=== PATIENT | female | born 1980 | race Caucasian/White ===

== ENCOUNTER → 2017-11-11 | Outpatient (CLI) | payer OTHER ==
[~2017-11-11] MED LIST: ALBU4 PO; ALBU90I INH; AMOX500 PO; AMPDEX10 PO; AZIT250 PO; CLON.5 PO; CODACE30 PO; CODGUAEL PO; DULO30 PO; FLUSAL1005 IH; HYDACE10B PO; HYDACE5 PO; IBUP800 PO; LAMO50 PO; PRED10 PO; PROACE100 PO; RXTRAM50 PO; SULTRIDS PO; TRAM50 PO; [UNRECOGNIZED DRUG - CODE] PO
[2017-11-12 14:27] LABS: Candida species (DNA Probe) Negative (NEGATIVE); G. vaginalis (DNA Probe) Positive (NEGATIVE); T. vaginalis (DNA Probe) Negative (NEGATIVE)
== END ==
LOC: LAB SHORT 17:00 → LAB 17:00
PROVIDERS: Physician Assistant
DX: Z01.419 Encounter for gynecological examination (general) (routine) without abnormal findings (principal); Z11.3 Encounter for screening for infections with a predominantly sexual mode of transmission
CPT/HCPCS: 87480; 87510; 87529; 87660

== ENCOUNTER → 2018-10-10 | Outpatient (CLI) | payer OTHER ==
[~2018-10-10] MED LIST changes: +AMPDEX5 PO; +CYCL10 PO; +Hydrochlorothia25 MG PO; +LAMO25 PO; -LAMO50 PO; +OMEPRAZOLE MAGN20 MG PO; +POTCHL10ER PO; +SUCR1 PO
[2018-10-10 17:47] LABS: BASOPHILS ABSOLUTE AUTO 0.02 K/mm3 (0.00-0.23); BASOPHILS PERCENT AUTO 0 % (0-2); EOSINOPHILS ABSOLUTE AUTO 0.08 K/mm3 (0.00-0.68); EOSINOPHILS PERCENT AUTO 1 % (0-6); Hematocrit 36.1 % (33.0-51.0); Hemoglobin 12.4 g/dL (11.5-16.0); IMMATURE GRAN ABSOLUTE AUTO 0.01 K/mm3 (0.00-0.10); IMMATURE GRAN PERCENT AUTO 0 % (0-1); LYMPHOCYTES ABSOLUTE AUTO 2.02 K/mm3 (0.84-5.20); LYMPHOCYTES PERCENT AUTO 30 % (21-46); MONOCYTES ABSOLUTE AUTO 0.65 K/mm3 (0.16-1.47); MONOCYTES PERCENT AUTO 10 % (4-13); Mean Corpuscular HGB 30.5 pg (26.0-34.0); Mean Corpuscular HGB Conc 34.3 g/dL (31.5-36.5); Mean Corpuscular Volume 89 fL (80-100); Mean Platelet Volume 10.5 fL (9.1-12.4); NEUTROPHILS ABSOLUTE AUTO 3.97 K/mm3 (1.96-9.15); NEUTROPHILS PERCENT AUTO 59 % (41-73); Platelet Count 317 K/mm3 (150-400); RDW Coefficient Variation 13.9 % (11.7-14.2); RDW Standard Deviation 44.6 fL (35.1-46.3); Red Blood Cell Count 4.07 M/mm3 (3.80-5.20); White Blood Cell Count 6.75 K/mm3 (4.00-11.30)
[2018-10-10 18:07] LABS: Alanine Aminotransfer (ALT/SGP 52 U/L (12-78); Albumin, Blood 3.5 g/dL (3.4-5.0); Alk Phos 94 U/L (40-126); Anion Gap 8 mmol/L (6-16); Aspartate Aminotrans (AST/SGOT 30 U/L (12-37); Bilirubin, Total 0.4 mg/dL (0.1-1.0); Blood Urea Nitrogen 11 mg/dL (8-24); Bun/Creatinine Ratio 15.1 (12.0-20.0); CO2, Blood 34 mmol/L (21-32); Calcium, Blood 8.9 mg/dL (8.5-10.1); Chloride, Blood 96 mmol/L (98-108); Creatinine, Blood 0.73 mg/dL (0.40-1.00); Globulin, Blood 3.6 g/dL (2.2-4.0); Glomerular Filtration Rate >60 (60-); Glucose, Blood 98 mg/dL (70-99); Potassium, Blood 2.8 mmol/L (3.5-5.5); Sodium, Blood 138 mmol/L (136-145); Thyroid Stimulating Hormone 0.414 uIU/mL (0.360-4.800); Total Protein, Blood 7.1 g/dL (6.4-8.2)
== END ==
LOC: LAB EV 17:41 → LAB SHORT 17:41
PROVIDERS: Physician Assistant
DX: M79.89 Other specified soft tissue disorders (principal); R53.83 Other fatigue
CPT/HCPCS: 80053; 83880; 84443; 85025

== ENCOUNTER 2018-11-06 07:40 | Day surgery (SDC) | payer OTHER ==
[~2018-11-06 07:40] MED LIST changes: +GABA800 PO; +HYDCHL25 PO; +Prilosec Otc20 MG PO
--- NOTE | 2018-11-06 08:11 | NUR ---
Ambulatory in Day Surgery History, Chart, Medications and Allergies reviewed before start of procedure. Lungs clear T/O to Auscultation. Patient confirms NPO status and agrees with scheduled surgery. Patient States Post-Procedure ride home has been arranged.
--- NOTE | 2018-11-06 08:54 | NUR ---
11/06/18 0854 Nasreen Farrell History, Chart, Medications and Allergies reviewed before start of procedure.PATIENT DETERMINED TO BE ASA APPROPRIATE FOR PROPOFOL SEDATION PRIOR TO START OF PROCEDURE BY .MONITOR INTACT WITH CONTINUOUS PULSE OXIMETRY AND INTERMITTENT BP.3-LEAD EKG REVIEWED WITH PHYSICIAN PRIOR TO START OF PROCEDURE.O2 VIA N/C INTACT THROUGHOUT SEDATION/PROCEDURE.
--- NOTE | 2018-11-06 09:43 | NUR ---
Patient up to Ambulate independently. Gait steady. Discharge instructions reviewed with patient. Patient verbalizes understanding. Copy given to patient to take home. Patient States Post-Procedure ride home has been arranged. Discharged via wheelchair to private car for ride home.
== END 2018-11-06 22:53 | disposition home or self-care (01) ==
LOC: ORSCMMR 07:40 → ORD 08:30 → ORSCMMR 08:30
PROVIDERS: Internal Medicine Gastroenterology
PROC: 0DB68ZX Excision of Stomach, Via Natural or Artificial Opening Endoscopic, Diagnostic (ICD-10-PCS; principal; 2018-11-06 08:30)
DX: Z87.11 Personal history of peptic ulcer disease (principal); K31.9 Disease of stomach and duodenum, unspecified; F32.9 Major depressive disorder, single episode, unspecified; I10 Essential (primary) hypertension; Z87.891 Personal history of nicotine dependence; Z79.899 Other long term (current) drug therapy
CPT/HCPCS: 88305; 88342; J2250; J2704; J7120

== ENCOUNTER 2019-01-08 01:41 | Emergency (ER) | payer OTHER ==
[~2019-01-08] VITALS: Ht 177.8 cm; Wt 90.7 kg
[2019-01-08] MEDS ORDERED: LASIX (02:06)
[2019-01-08] MEDS ORDERED: SUCRALFATE (02:06)
[2019-01-08] MEDS ORDERED: RANITIDINE (02:06)
[2019-01-08] MEDS ORDERED: KLONOPIN (02:06)
[2019-01-08 02:31] LABS: BASOPHILS ABSOLUTE AUTO 0.02 K/mm3 (0.00-0.23); BASOPHILS PERCENT AUTO 0 % (0-2); EOSINOPHILS ABSOLUTE AUTO 0.43 K/mm3 (0.00-0.68); EOSINOPHILS PERCENT AUTO 8 % (0-6); Hematocrit 32.8 % (33.0-51.0); Hemoglobin 10.8 g/dL (11.5-16.0); IMMATURE GRAN ABSOLUTE AUTO 0.01 K/mm3 (0.00-0.10); IMMATURE GRAN PERCENT AUTO 0 % (0-1); LYMPHOCYTES PERCENT AUTO 35 % (21-46); MONOCYTES ABSOLUTE AUTO 0.58 K/mm3 (0.16-1.47); MONOCYTES PERCENT AUTO 11 % (4-13); Mean Corpuscular HGB 30.6 pg (26.0-34.0); Mean Corpuscular HGB Conc 32.9 g/dL (31.5-36.5); Mean Corpuscular Volume 93 fL (80-100); NEUTROPHILS ABSOLUTE AUTO 2.56 K/mm3 (1.96-9.15); NEUTROPHILS PERCENT AUTO 47 % (41-73); RDW Coefficient Variation 14.8 % (11.7-14.2); RDW Standard Deviation 50.7 fL (35.1-46.3); Red Blood Cell Count 3.53 M/mm3 (3.80-5.20)
[2019-01-08 02:37] LABS: Mean Platelet Volume 9.9 fL (9.1-12.4); Platelet Count 308 K/mm3 (150-400)
[2019-01-08 02:40] LABS: Alanine Aminotransfer (ALT/SGP 36 U/L (12-78); Albumin, Blood 3.3 g/dL (3.4-5.0); Albumin/Globulin Ratio 0.9 (0.8-1.8); Alk Phos 101 U/L (50-136); Anion Gap 3 mmol/L (6-16); Aspartate Aminotrans (AST/SGOT 21 U/L (12-37); Bilirubin, Total 0.1 mg/dL (0.1-1.0); Blood Urea Nitrogen 12 mg/dL (8-24); Bun/Creatinine Ratio 16.5 (12.0-20.0); CO2, Blood 36 mmol/L (21-32); Calcium, Blood 8.7 mg/dL (8.5-10.1); Chloride, Blood 98 mmol/L (98-108); Creatinine, Blood 0.73 mg/dL (0.40-1.00); Globulin, Blood 3.6 g/dL (2.2-4.0); Glomerular Filtration Rate >60 (60-); Glucose, Blood 76 mg/dL (70-99); Potassium, Blood 3.4 mmol/L (3.5-5.5); Sodium, Blood 137 mmol/L (136-145); Total Protein, Blood 6.9 g/dL (6.4-8.2)
[2019-01-08 03:09] LABS: Source, Urine Clean Catch
[2019-01-08 03:12] LABS: Bilirubin, Urine Neg (Neg); Blood, Urine 2+ (Neg); Glucose Qualitative, Urine Neg (Neg); Ketones, Urine Neg (Neg); Leukocyte Esterase, Urine 1+ (Neg); Nitrite, Urine Neg (Neg); Protein, Urine 1+ (Neg); Urobilinogen, Urine NORM (Normal)
[2019-01-08 03:22] LABS: Appearance, Urine Hazy (Clear); Color, Urine Yellow (P-Yellow)
[2019-01-08 03:23] LABS: Bacteria Few /hpf; Red Blood Cells, Urine Rare /hpf (0-2); Squamous Epithelial Cells Mod /hpf (Few)
== END 2019-01-08 04:54 | disposition home or self-care (01) ==
LOC: ER 01:41
PROVIDERS: Emergency Medicine
DX: R60.0 Localized edema (principal)
CPT/HCPCS: 36415; 71046; 80053; 81001; 83880; 85025; 87086; 96374; 99284-25; J1940

== ENCOUNTER → 2019-02-16 | Outpatient (CLI) | payer OTHER ==
[~2019-02-16] MED LIST changes: +KLONOPIN; +LASIX; +RANITIDINE; +SUCRALFATE
[2019-02-17 10:33] LABS: Candida species (DNA Probe) Negative (NEGATIVE); G. vaginalis (DNA Probe) Positive (NEGATIVE); T. vaginalis (DNA Probe) Negative (NEGATIVE)
== END | disposition home or self-care (01) ==
LOC: LAB 16:21 → LAB SHORT 16:21
PROVIDERS: Nurse Practitioner Family
DX: N76.0 Acute vaginitis (principal)
CPT/HCPCS: 87480; 87510; 87660

== ENCOUNTER → 2019-03-06 | Outpatient (CLI) | payer OTHER | END | disposition home or self-care (01) | LOC: LAB SHORT 17:52 → LAB 17:52 | DX: R10.2 Pelvic and perineal pain (principal) | CPT/HCPCS: 87077; 87086; 87186 ==

== ENCOUNTER → 2019-04-01 | Outpatient (CLI) | payer OTHER ==
[2019-04-01 12:36] LABS: Bilirubin, Urine Neg (Neg); Blood, Urine 1+ (Neg); Glucose Qualitative, Urine Neg (Neg); Ketones, Urine Neg (Neg); Leukocyte Esterase, Urine 3+ (Neg); Nitrite, Urine Neg (Neg); Protein, Urine Neg (Neg); Urobilinogen, Urine NORM (Normal)
[2019-04-01 13:05] LABS: Appearance, Urine Hazy (Clear); Bacteria Rare /hpf; Color, Urine Yellow (P-Yellow); Squamous Epithelial Cells Few /hpf (Few); White Blood Cells, Urine 25-50 /hpf (0-5)
[2019-04-01 13:22] LABS: Creatinine, Urine Random 42.9 mg/dL (27.00-270.00); Protein, Urine Random 9.8 mg/dL (0.0-11.9)
== END | disposition home or self-care (01) ==
LOC: LAB SHORT 12:06 → LAB 12:06
PROVIDERS: Internal Medicine
DX: R80.9 Proteinuria, unspecified (principal)
CPT/HCPCS: 81001; 82570; 84156

== ENCOUNTER → 2019-04-25 | Outpatient (CLI) | payer OTHER | END | disposition home or self-care (01) | LOC: LAB SHORT 12:18 → LAB 12:18 | DX: R30.0 Dysuria (principal) | CPT/HCPCS: 87077; 87086; 87147; 87186 ==

== ENCOUNTER 2019-05-20 04:04 | Emergency (ER) | payer OTHER ==
[~2019-05-20] VITALS: Ht 177.8 cm; Wt 86.2 kg
[2019-05-20] MEDS ORDERED: Augmentin 500-1 EACH PO (04:38)
== END 2019-05-20 05:00 | disposition home or self-care (01) ==
LOC: ER 04:04
DX: N81.4 Uterovaginal prolapse, unspecified (principal); L03.211 Cellulitis of face; Z88.8 Allergy status to other drugs, medicaments and biological substances; Z88.4 Allergy status to anesthetic agent; Z88.5 Allergy status to narcotic agent; Z79.899 Other long term (current) drug therapy; J45.909 Unspecified asthma, uncomplicated; Z87.891 Personal history of nicotine dependence
CPT/HCPCS: 99284

== ENCOUNTER 2019-06-13 20:55 | Emergency (ER) | payer OTHER ==
[~2019-06-13] VITALS: Ht 177.8 cm; Wt 95.2 kg
[~2019-06-13 20:55] MED LIST changes: +Augmentin 500-1 EACH PO; +FURO40 PO; +LAMO100 PO; -LAMO25 PO; -LASIX; -POTCHL10ER PO; +POTCHL20ER PO; -RANITIDINE; +Zantac150 MG PO
[2019-06-14] MEDS ORDERED: SPIR50 PO (00:23)
[2019-06-14] MEDS ORDERED: Augmentin 875-1 EACH PO (00:57)
[2019-06-14] MEDS ORDERED: Bactrim 400-801 EACH PO (00:57)
[2019-06-14] MEDS ORDERED: FLUC150A PO (01:50)
[2019-06-15] MEDS ORDERED: Klonopin0.5 MG PO (11:49)
[2019-06-15] MEDS ORDERED: Amphetamine Sal20 MG PO ×3 (11:51→12:06)
[2019-06-15] MEDS ORDERED: ACYC800 PO (12:13)
== END 2019-06-14 01:41 | disposition home or self-care (01) ==
LOC: ER 20:55
DX: L03.213 Periorbital cellulitis (principal); J45.909 Unspecified asthma, uncomplicated; F17.200 Nicotine dependence, unspecified, uncomplicated; Z88.5 Allergy status to narcotic agent; Z88.8 Allergy status to other drugs, medicaments and biological substances; Z79.899 Other long term (current) drug therapy
CPT/HCPCS: 99283; A9270-GY; Q0163

== ENCOUNTER 2019-06-15 08:35 | Inpatient (IN) | payer OTHER ==
[~2019-06-15] VITALS: Ht 177.8 cm; Wt 92.7 kg
[~2019-06-15 08:35] MED LIST changes: +Augmentin 875-1 EACH PO; +Bactrim 400-801 EACH PO; +FLUC150A PO; +SPIR50 PO
[2019-06-15 10:09] LABS: BASOPHILS ABSOLUTE AUTO 0.01 K/mm3 (0.00-0.23); BASOPHILS PERCENT AUTO 0 % (0-2); EOSINOPHILS PERCENT AUTO 1 % (0-6); Hematocrit 32.5 % (33.0-51.0); Hemoglobin 10.5 g/dL (11.5-16.0); IMMATURE GRAN ABSOLUTE AUTO 0.03 K/mm3 (0.00-0.10); IMMATURE GRAN PERCENT AUTO 0 % (0-1); LYMPHOCYTES ABSOLUTE AUTO 1.61 K/mm3 (0.84-5.20); LYMPHOCYTES PERCENT AUTO 16 % (21-46); MONOCYTES ABSOLUTE AUTO 0.85 K/mm3 (0.16-1.47); MONOCYTES PERCENT AUTO 8 % (4-13); Mean Corpuscular HGB 27.4 pg (26.0-34.0); Mean Corpuscular HGB Conc 32.3 g/dL (31.5-36.5); Mean Corpuscular Volume 85 fL (80-100); Mean Platelet Volume 9.9 fL (9.1-12.4); NEUTROPHILS ABSOLUTE AUTO 7.74 K/mm3 (1.96-9.15); NEUTROPHILS PERCENT AUTO 75 % (41-73); Platelet Count 253 K/mm3 (150-400); RDW Coefficient Variation 15.7 % (11.7-14.2); RDW Standard Deviation 48.6 fL (35.1-46.3); Red Blood Cell Count 3.83 M/mm3 (3.80-5.20); White Blood Cell Count 10.34 K/mm3 (4.00-11.30)
[2019-06-15 10:23] LABS: Anion Gap 6 mmol/L (6-16); Blood Urea Nitrogen 8 mg/dL (8-24); Bun/Creatinine Ratio 12.6 (12.0-20.0); CO2, Blood 28 mmol/L (21-32); Calcium, Blood 8.5 mg/dL (8.5-10.1); Chloride, Blood 105 mmol/L (98-108); Creatinine, Blood 0.63 mg/dL (0.40-1.00); Glomerular Filtration Rate >60 (60-); Glucose, Blood 100 mg/dL (70-99); Potassium, Blood 3.4 mmol/L (3.5-5.5); Sodium, Blood 139 mmol/L (136-145)
[2019-06-15] MEDS ORDERED: Klonopin0.5 MG PO (11:49)
[2019-06-15] MEDS ORDERED: Amphetamine Sal20 MG PO ×3 (11:51→12:06)
[2019-06-15] MEDS ORDERED: ACYC800 PO (12:13)
[2019-06-15 13:08] LABS: U Amphetamine Screen DETECTED; U Barbituate Screen Not Detected; U Benzodiazapine Screen DETECTED; U Buprenorphine Screen Not Detected; U Cannabinoids Screen Not Detected; U Cocaine Screen Not Detected; U Methadone Screen DETECTED; U Methamphetamine Screen DETECTED; U Opiates Screen DETECTED; U Oxycodone Screen Not Detected; U Phencyclidine Screen Not Detected; U Propoxyphene Screen Not Detected
--- NOTE | 2019-06-15 14:00 | NUR ---
ADMIT NOTE- PT ALERT AND ORIENTED ADMITTED THROUGH THE ED FOR LEFT FACIAL CELLULITIS. SWABBS COMPLETED IN THE ED TO R/O MRSA. PT HIGH RISK FOR MRSA BUT HAS NO Hx OF IT. PER RN FIELD CASE MANAGER LAUREL SEEK PT TO GO INTO [facility] UNTIL FIRST SET OF SWABS COMES BACK NEGATIVE. PT AWARE OF THIS. PT STATES SHE HAS A Hx OF HEROIN IV DRUG USE BUT STATES SHE HAS NOT USED SINCE 02/13/19. PT STATES SHE GOES TO THE [facility] AND TAKES 70MG OF METHADONE DAILY. PT IS CONCERNED ABOUT HER TAKE HOME DOSE OF METHADONE FOR THAT SHE SHOULD BE PICKING UP. WILL CALL [facility] TO VERIFY DOSE.
--- NOTE | 2019-06-15 17:46 | NUR ---
SHIFT SUMMARY- PT RECIEVED IV ABX ON ADMIT. PT HAS PAIN IN HER LEFT FACE FROM CELLULITIS, LEFT EYE SWOLLEN COMPLETELY SHUT ON ADMIT. PROVIDED AN ICE PACK FOR THE PT TO USE TO HELP WITH THE PAIN, WELL IBUPROFEN. PT TOOK A LONG (LONGER THAN 1 HOUR) SHOWER AFTER ADMIT WAS COMPLETE. PT ALERT, ORIENTED, INDEPENDENT IN THE ROOM. CABLE SWAGER ANITA ATTEMPTED TO CONTACT THE [facility] AT 1515 AND THEY WERE ALREADY CLOSED, UNABLE TO VERIFY PT DOSE OF 70MG DAILY OF METHADONE (PER PT). WILL PASS ON TO [facility] MONTERO TO HAVE DAY RN TOMORROW MORNING CALL CHAR AFTER SHIFT CHANGE. PT STATED SHE HAD HER DOSE FOR TODAY PRIOR TO ADMIT. CONTACT INFO FOR THE [facility] IS [phone]
--- NOTE | 2019-06-15 19:35 | NUR ---
JCARLOS IS IN THE ROOM WITH HER MOTHER, SLEEPY BUT IS AROUSABLE. STATES PAIN IS BETTER. SWELLING TO THE LEFT EYE, STILL UNABLE TO OPEN IT. OUTLINED REDNESS. GAVE WARM COMPRESS, DENIES ANY NEEDS AT THIS TIME. CALL LIGHT GIVEN. WILL CONTINUE TO MONITOR.
--- NOTE | 2019-06-15 21:04 | NUR ---
MEDICATIONS ADMINISTERED, PATIENT RESTING IN BED, DAUGHTER AT BED SIDE. NO NEEDS INDICATED.
--- NOTE | 2019-06-16 00:20 | NUR ---
JCARLOS IS RESTING COMFORTABLY, NO SIGNS OF DISTRESS. WILL CONTINUE TO MONITOR.
--- NOTE | 2019-06-16 06:05 | NUR ---
SHIFT SUMMARY: JCARLOS HAD A GOOD NIGHT. WARM TO COLD COMPRESS HAVE BEEN APPLIED THROUGHOUT THE NIGHT, STATES THE COLD FEELS BETTER THEN THE WARMTH. REDNESS HAS STAYED WITH IN THE LINES THAT WERE PLACED TONIGHT, SWELLING HAS DECREASED SLIGHTLY. SHE STILL UNABLE TO OPEN HER EYE UP. PAIN HAS REMAINED CONTROLLED SHE GOT TYLENOL AT SHIFT CHANGE AND HAS SLEPT OFF AND ON THIS SHIFT. VS HAVE REMAINED STABLE. WILL REPORT TO DAY SHIFT.
[2019-06-16 06:06] LABS: Hematocrit 32.2 % (33.0-51.0); Hemoglobin 10.3 g/dL (11.5-16.0); Mean Corpuscular HGB 27.9 pg (26.0-34.0); Mean Corpuscular Volume 87 fL (80-100); Mean Platelet Volume 10.8 fL (9.1-12.4); Platelet Count 276 K/mm3 (150-400); RDW Coefficient Variation 16.1 % (11.7-14.2); RDW Standard Deviation 51.8 fL (35.1-46.3); Red Blood Cell Count 3.69 M/mm3 (3.80-5.20); White Blood Cell Count 8.57 K/mm3 (4.00-11.30)
--- NOTE | 2019-06-16 11:15 | NUR ---
Patient is sitting up in bed and alert. Patient immediately shares about her ER experience, her struggles in her personal life and her christina journey. I listen empathically, hear confession, reinforce helpful attitudes and practices, and provide grief support, pasoral addictions counselor assistant and prayer. Patient responds well and shows signs of renewed christina. I will continue to remain available to patient and family.
[2019-06-16] MEDS ORDERED: METH10 PO (11:40)
[2019-06-16 11:54] LABS: Vancomycin, Trough 19.7 ug/mL (5.0-10.0)
--- NOTE | 2019-06-16 18:04 | NUR ---
SHIFT SUMMARY: NO ACUTE CHANGES TO REPORT THIS SHIFT. PT A&O; CALM AND COOPERATIVE WITH CRARE. CELLULITIS TO L FACE; MEDICATED FOR PAIN PER EMAR; SLIGHT DECREASE IN SWELLING; PATIENT REMAINS UNABLE TO OPEN L EYE. PATIENT'S HOME METHADONE DOSING STARTED THIS SHIFT. PATIENT INDEPENDENT IN ROOM. PAIN MANAGEMENT & IV VANCO CONTINUING. WCTM.
--- NOTE | 2019-06-16 20:54 | NUR ---
JCARLOS IN BED, TALKING WITH FRIEND WHO CAME TO STAY THE NIGHT WITH HER. SHE STATES THERE IS PAIN IN THE LEFT SIDE OF HER FACE THAT HAS BEEN OFF AND ON TODAY. REDNESS HAS DECREASED DOWN FROM THE MARKINGS. STATES SHE ALSO HAD NAUSEA THIS AM BUT DENIES ANY AT THIS TIME. MEDICATIONS GIVEN PER EMAR. CALL LIGHT IN REACH.
--- NOTE | 2019-06-17 00:07 | NUR ---
JCARLOS JUST GOT OUT OF THE SHOWER WITH HER GENTALMAN FRIEND THAT SHARED THE SHOWER WITH HER. CURRENTLY SITTING IN THE ROOM TOGETHER, DENYING ANY NEEDS. CALL LIGHT IN REACH.
--- NOTE | 2019-06-17 05:47 | NUR ---
SHIFT SUMMARY: JCARLOS HAS BEEN STABLE THROUGHOUT THE SHIFT, VS WNL. PAIN MANAGED WITH TRAMADOL AND TYLENOL. IV ANTIBOTICS INFUSED WITH NO PROBLEMS. SHE HAD A FRIEND STAY WITH HER ALL NIGHT. SHE TOOK SHOWER. SWELLING AND REDNESS TO THE LEFT EYE CONTINUE TO DECREASE. SHE DID STATES SHE FEELS LIKE IT IS MOVING TO HER RIGHT EYE BUT NO SIGNS WERE NOTED. NO OTHER ACUTE CHANGES WERE TO NOTE THIS SHIFT. WILL REPORT OFF.
--- NOTE | 2019-06-17 17:58 | NUR ---
SHIFT SUMMARY: NO ACUTE CHANGES TO REPORT THIS SHIFT. PT A&O; CALM AND COOPERATIVE WITH CARE. MEDICATED FOR PAIN PER EMAR. L FACE CELLULITIS; DECREASING SWELLING & REDNESS; PATIENT NOW ABLE TO OPEN L EYE. PATIENT INDEPENDENT IN ROOM. IV ABX & PAIN CONTROL CONTINUING. WCTM.
--- NOTE | 2019-06-18 04:24 | NUR ---
SWELLING OF LEFT SIDE OF FACE CONTINUES. VOICED SOME DRAINAGE, BUT NONE OBSERVED. IV ANTIBIOTICS (VANCO) CONTINUE - SEE MAR FOR DETAILS. CONTACT ISOLATION MAINTAINED. HAS BEEN RESTING QUIETLY WITH OCCASIONAL INTERRUPTIONS. CALL LIGHT IN REACH.
[2019-06-18 10:59] LABS: BASOPHILS ABSOLUTE AUTO 0.01 K/mm3 (0.00-0.23); BASOPHILS PERCENT AUTO 0 % (0-2); EOSINOPHILS ABSOLUTE AUTO 0.28 K/mm3 (0.00-0.68); EOSINOPHILS PERCENT AUTO 4 % (0-6); Hematocrit 32.6 % (33.0-51.0); Hemoglobin 10.5 g/dL (11.5-16.0); IMMATURE GRAN ABSOLUTE AUTO 0.02 K/mm3 (0.00-0.10); IMMATURE GRAN PERCENT AUTO 0 % (0-1); LYMPHOCYTES ABSOLUTE AUTO 1.98 K/mm3 (0.84-5.20); LYMPHOCYTES PERCENT AUTO 30 % (21-46); MONOCYTES ABSOLUTE AUTO 0.59 K/mm3 (0.16-1.47); MONOCYTES PERCENT AUTO 9 % (4-13); Mean Corpuscular HGB 27.5 pg (26.0-34.0); Mean Corpuscular HGB Conc 32.2 g/dL (31.5-36.5); Mean Corpuscular Volume 85 fL (80-100); Mean Platelet Volume 9.8 fL (9.1-12.4); NEUTROPHILS ABSOLUTE AUTO 3.74 K/mm3 (1.96-9.15); NEUTROPHILS PERCENT AUTO 57 % (41-73); Platelet Count 361 K/mm3 (150-400); RDW Standard Deviation 50.2 fL (35.1-46.3); Red Blood Cell Count 3.82 M/mm3 (3.80-5.20); White Blood Cell Count 6.62 K/mm3 (4.00-11.30)
[2019-06-18 11:17] LABS: Albumin, Blood 2.6 g/dL (3.4-5.0); Anion Gap 5 mmol/L (6-16); Blood Urea Nitrogen 9 mg/dL (8-24); Bun/Creatinine Ratio 12.3 (12.0-20.0); CO2, Blood 29 mmol/L (21-32); Calcium, Blood 8.8 mg/dL (8.5-10.1); Chloride, Blood 106 mmol/L (98-108); Creatinine, Blood 0.73 mg/dL (0.40-1.00); Glomerular Filtration Rate >60 (60-); Glucose, Blood 109 mg/dL (70-99); Phosphorus, Blood 3.6 mg/dL (2.5-4.9); Sodium, Blood 140 mmol/L (136-145)
[2019-06-18 11:31] LABS: Vancomycin, Trough 21.3 ug/mL (5.0-10.0)
[2019-06-18 12:16] LABS: Creatinine, Blood 0.71 mg/dL (0.40-1.00)
--- NOTE | 2019-06-18 17:32 | NUR ---
PATIENT A/OX4 UP INDEPENDENTLY IN ROOM. 22G IV TO L FA WNL AND SL BETWEEN ABX. CELLULITS TO L FACE AND EYE WITH SOME PURULENT DRAINAGE ABOVE EYEBROW. VANCOMYCIN TO TREAT. PAIN WELL CONTROLLED. PATIENT HAS BEEN CALM AND COOPERATIVE WITH CARE THIS SHIFT.
--- NOTE | 2019-06-19 01:59 | NUR ---
RESTING QUIETLY A INTERVALS. TOLERATING MEDS WELL. NO COMPLAINTS OF PAIN. ISOLATION PRECAUTIOINS MAINTAINED. CALL LIGHT IN REACH.
[2019-06-19 15:29] LABS: Vancomycin, Trough 13.3 ug/mL (5.0-10.0)
--- NOTE | 2019-06-19 17:27 | NUR ---
SHIFT SUMMARY PT AXO, PLEASANT AND COOPERATIVE WITH CARE. UP AD JOBY IN ROOM. PT CONTINUES TO HAVE SWELLING AROUND L. EYE. WARM COMPRESS PROVIDED PER ORDERS. VSS. PT DENIES DRUG USE AND DENIES HER VISITOR USING DRUGS WHILE IN THE HOSPITAL. SECURITY, NURSING RISK CONTROL SPECIALIST AND CHARGE NURSE AWARE OF SUSPICION. VSS. BED IN LOW POSITION, CALL LIGHT WITHIN REACH.
--- NOTE | 2019-06-20 07:19 | NUR ---
SHIFT SUMMARY PT HAS APPEARED TO BE SLEEPING ALL NIGHT. HER LS WERE CLR T/O AND BT+ X4. SHE IS INDEPENDENT UP TO THE BATHROOM AND WALKING AROUND IN HER ROOM AT TIMES. SHE HASN'T HAD ANY C/O TONIGHT. HER IV SITE WAS BOTHERING HER SO ANOTHER RN TRIED TO PUT IN ANOTHER IV BUT WAS UNSUCCESSFUL. WE PASSED ALONG THIS INFORMATION TO DAY SHIFT NURSE AND ALSO THE FACT THAT JCARLOS MAY GET TO GO HOME TODAY, SO MAY BE ABLE TO GET THE IV D/C'D. NO OTHER PROBLEMS.
[2019-06-20] MEDS ORDERED: IBU600 MG PO (10:59)
[2019-06-20] MEDS ORDERED: Vsl#3 Capsule1 EACH PO (11:00)
[2019-06-20] MEDS ORDERED: CLIN300 PO (11:01)
--- NOTE | 2019-06-20 11:26 | NUR ---
PT DISCHARGED AT 1120 WITH FAMILY TO TRANSPORT. PT HAD ALL PAPERWORK REVIEWED AND EDUCATIONAL MATERIAL SENT WITH HER. MEDCIATIONS FAXED TO [facility] IN [place]. PT AOX4 AND INDEPENDENT. PT STATES HER PAIN HAS IMPROVED A LOT RATING IT AT 4 TODAY AND THEN 2 AFTER HER [facility]. PT REFUSED ESCORT OUT OF ROOM AND WALKED OUT WITH FAMILY. IV REMOVED PRIOR TO DAY SHIFT TODAY DUE TO IT FAILING PT WAS UNABLE TO RECIEVE HER [address] TAVARES WAS MADE AWARE PRIOR TO DISCHARGE. THEY HAD NOT BEEN ABLE TO START A NEW IV DUE TO DIFFICULT STICK.
== END 2019-06-20 11:22 | disposition home or self-care (01) | DRG 603 ==
LOC: ER 08:35 → MEDS 08:36 → ENPENDDIS 06-20 10:00 → MEDS 06-20 11:22
PROVIDERS: Emergency Medicine; Internal Medicine; Nurse Practitioner Acute Care; Pharmacist; ADMIT Hospitalist
DX: L03.213 Periorbital cellulitis (principal); F90.9 Attention-deficit hyperactivity disorder, unspecified type; I89.0 Lymphedema, not elsewhere classified; F31.9 Bipolar disorder, unspecified; G43.909 Migraine, unspecified, not intractable, without status migrainosus; F11.11 Opioid abuse, in remission; J45.20 Mild intermittent asthma, uncomplicated; D64.9 Anemia, unspecified; M54.9 Dorsalgia, unspecified; G89.29 Other chronic pain; Z79.899 Other long term (current) drug therapy; Z87.891 Personal history of nicotine dependence; Z88.5 Allergy status to narcotic agent; Z88.1 Allergy status to other antibiotic agents
CPT/HCPCS: 36415; 70487; 80048; 80069; 80202; 82565; 85025; 85027; 96365-59; 99284-25; A9270; J3370; J7050; Q9967

== ENCOUNTER → 2019-10-13 | Outpatient (CLI) | payer OTHER ==
[~2019-10-13] MED LIST changes: +ACYC800 PO; +Amphetamine Sal20 MG PO; +CLIN300 PO; +IBU600 MG PO; +Klonopin0.5 MG PO; +METH10 PO; +Vsl#3 Capsule1 EACH PO
== END | disposition home or self-care (01) ==
LOC: LAB 13:22 → LAB SHORT 13:22
DX: R30.0 Dysuria (principal)
CPT/HCPCS: 87077; 87086; 87147; 87186

== ENCOUNTER → 2019-10-27 | Outpatient (CLI) | payer OTHER ==
[2019-10-28 11:47] LABS: Candida species (DNA Probe) Positive (NEGATIVE); G. vaginalis (DNA Probe) Negative (NEGATIVE); T. vaginalis (DNA Probe) Negative (NEGATIVE)
[2019-10-28 23:10] LABS: CHLAMYDIA TRACHOMATIS, NAA Negative (Negative); NEISSERIA GONORRHOEAE, NAA Negative (Negative)
== END | disposition home or self-care (01) ==
LOC: LAB 13:42 → LAB SHORT 13:42
PROVIDERS: Family Medicine
DX: R30.0 Dysuria (principal); Z20.2 Contact with and (suspected) exposure to infections with a predominantly sexual mode of transmission
CPT/HCPCS: 87077; 87086; 87186; 87480; 87491; 87510; 87591; 87660

== ENCOUNTER → 2019-11-20 | Outpatient (CLI) | payer OTHER ==
[2019-11-20 14:09] LABS: Source, Urine Voided
[2019-11-20 15:00] LABS: Bilirubin, Urine Neg (Neg); Blood, Urine 4+ (Neg); Glucose Qualitative, Urine Neg (Neg); Ketones, Urine Neg (Neg); Leukocyte Esterase, Urine 3+ (Neg); Nitrite, Urine Neg (Neg); Protein, Urine 3+ (Neg); Urobilinogen, Urine NORM (Normal)
[2019-11-20 15:19] LABS: Appearance, Urine Cloudy (Clear); Color, Urine Yellow (P-Yellow)
[2019-11-20 15:21] LABS: White Blood Cells, Urine TNTC /hpf (0-5)
[2019-11-20 15:22] LABS: Bacteria Many /hpf; Red Blood Cells, Urine TNTC /hpf (0-2); Squamous Epithelial Cells Few /hpf (Few); Transitional Epithelial Cells Few /hpf (0-Rare)
[2019-11-21 14:26] LABS: Candida species (DNA Probe) Negative (NEGATIVE); G. vaginalis (DNA Probe) Negative (NEGATIVE); T. vaginalis (DNA Probe) Negative (NEGATIVE)
[2019-11-22 14:10] LABS: CHLAMYDIA TRACHOMATIS, NAA Negative (Negative); NEISSERIA GONORRHOEAE, NAA Negative (Negative)
== END | disposition home or self-care (01) ==
LOC: LAB 14:06 → LAB SHORT 14:06
PROVIDERS: Nurse Practitioner Family
DX: N39.0 Urinary tract infection, site not specified (principal); R10.2 Pelvic and perineal pain; N89.8 Other specified noninflammatory disorders of vagina
CPT/HCPCS: 81001; 87077; 87086; 87186; 87480; 87491; 87510; 87591; 87660

== ENCOUNTER → 2020-07-26 | Outpatient (CLI) | payer OTHER ==
[2020-07-26 12:11] LABS: Source, Urine Clean Catch
[2020-07-26 13:46] LABS: Appearance, Urine Hazy (Clear); Bilirubin, Urine Neg (Neg); Blood, Urine 1+ (Neg); Color, Urine Yellow (P-Yellow); Glucose Qualitative, Urine Neg (Neg); Ketones, Urine Neg (Neg); Leukocyte Esterase, Urine 2+ (Neg); Nitrite, Urine Neg (Neg); Protein, Urine 1+ (Neg); Specific Gravity, Urine 1.005 (1.003-1.022); Urobilinogen, Urine 1+ (Normal)
[2020-07-26 14:01] LABS: Bacteria Mod /hpf; Red Blood Cells, Urine 0-2 /hpf (0-2); Squamous Epithelial Cells Mod /hpf (Few)
[2020-07-26 17:53] LABS: T. vaginalis (DNA Probe) Negative (NEGATIVE)
[2020-07-26 17:54] LABS: Candida species (DNA Probe) Positive (NEGATIVE); G. vaginalis (DNA Probe) Positive (NEGATIVE)
== END | disposition home or self-care (01) ==
LOC: PLD 10:20 → LAB SHORT 10:20
PROVIDERS: Nurse Practitioner Family
DX: N76.0 Acute vaginitis (principal); R30.0 Dysuria
CPT/HCPCS: 81001; 87086; 87480; 87510; 87660

== ENCOUNTER → 2021-08-28 | Outpatient (CLI) | payer OTHER ==
[2021-08-28 19:06] LABS: U Buprenorphine Screen DETECTED
[2021-08-28 19:07] LABS: U Amphetamine Screen Not Detected; U Barbituate Screen Not Detected; U Benzodiazapine Screen Not Detected; U Cannabinoids Screen Not Detected; U Cocaine Screen Not Detected; U Methadone Screen Not Detected; U Methamphetamine Screen Not Detected; U Opiates Screen Not Detected; U Oxycodone Screen Not Detected; U Phencyclidine Screen Not Detected; U Propoxyphene Screen Not Detected
== END ==
LOC: LAB SHORT 17:05 → LAB 17:05
PROVIDERS: Nurse Practitioner Psychiatric/Mental Health
DX: F31.81 Bipolar II disorder (principal)

== ENCOUNTER → 2021-09-07 | Outpatient (CLI) | payer OTHER ==
[2021-09-08 09:24] LABS: Candida species (DNA Probe) Negative (NEGATIVE); G. vaginalis (DNA Probe) Positive (NEGATIVE); T. vaginalis (DNA Probe) Negative (NEGATIVE)
== END ==
LOC: LAB SHORT 15:20 → LAB 15:20
PROVIDERS: Emergency Medicine
DX: N89.8 Other specified noninflammatory disorders of vagina (principal)
CPT/HCPCS: 87480; 87510; 87660

== ENCOUNTER → 2021-11-24 | Outpatient (CLI) | payer OTHER ==
[2021-11-25 13:18] LABS: Candida species (DNA Probe) Negative (NEGATIVE); G. vaginalis (DNA Probe) Positive (NEGATIVE); T. vaginalis (DNA Probe) Negative (NEGATIVE)
[2021-11-26 01:06] LABS: CHLAMYDIA TRACHOMATIS, NAA Negative (Negative)
== END ==
LOC: LAB SHORT 12:37
PROVIDERS: Physician Assistant Medical
DX: Z12.4 Encounter for screening for malignant neoplasm of cervix (principal); N30.90 Cystitis, unspecified without hematuria
CPT/HCPCS: 87086; 87480; 87491; 87510; 87591; 87660

== ENCOUNTER → 2022-06-13 | Outpatient (CLI) | payer OTHER | END | disposition home or self-care (01) | LOC: LAB SHORT 19:15 → LAB 19:15 | DX: N12 Tubulo-interstitial nephritis, not specified as acute or chronic (principal) | CPT/HCPCS: 87077; 87086; 87186 ==

== ENCOUNTER → 2022-12-31 | Outpatient (CLI) | payer OTHER ==
[2022-12-31 17:05] LABS: Source, Urine Clean Catch
[2022-12-31 19:26] LABS: Appearance, Urine Hazy (Clear); Bilirubin, Urine Neg (Neg); Blood, Urine 1+ (Neg); Color, Urine Yellow (P-Yellow); Glucose Qualitative, Urine Neg (Neg); Ketones, Urine Neg (Neg); Leukocyte Esterase, Urine 3+ (Neg); Nitrite, Urine Neg (Neg); Protein, Urine 2+ (Neg); Specific Gravity, Urine 1.015 (1.003-1.022); Urobilinogen, Urine NORM (Normal)
[2022-12-31 19:51] LABS: Mucus Light (0-Heavy); Squamous Epithelial Cells Rare /hpf (Few); Transitional Epithelial Cells Rare /hpf (0-Rare)
[2022-12-31 19:52] LABS: Bacteria Many /hpf; Red Blood Cells, Urine 0-2 /hpf (0-2); White Blood Cells, Urine TNTC /hpf (0-5)
[2023-01-01 11:35] LABS: Candida species (DNA Probe) Negative (NEGATIVE); G. vaginalis (DNA Probe) Negative (NEGATIVE); T. vaginalis (DNA Probe) Negative (NEGATIVE)
== END ==
LOC: LAB 17:02 → LAB SHORT 17:02
PROVIDERS: Student in an Organized Health Care Education/Training Program
DX: R30.0 Dysuria (principal); R35.0 Frequency of micturition
CPT/HCPCS: 81001; 87077; 87086; 87186; 87480; 87510; 87660

== ENCOUNTER → 2023-05-10 | Outpatient (CLI) | payer OTHER ==
[2023-05-10 14:05] LABS: U Amphetamine Screen Not Detected; U Barbituate Screen Not Detected; U Benzodiazapine Screen Not Detected; U Buprenorphine Screen DETECTED; U Cannabinoids Screen Not Detected; U Cocaine Screen Not Detected; U Methadone Screen Not Detected; U Methamphetamine Screen Not Detected; U Opiates Screen Not Detected; U Oxycodone Screen Not Detected; U Phencyclidine Screen Not Detected
== END ==
LOC: LAB SHORT 11:47 → LAB 11:47
PROVIDERS: Nurse Practitioner Psychiatric/Mental Health
DX: F90.2 Attention-deficit hyperactivity disorder, combined type (principal)
CPT/HCPCS: G0480

== ENCOUNTER → 2023-12-31 | Outpatient (CLI) | payer OTHER | END | disposition home or self-care (01) | LOC: LAB 13:32 → LAB SHORT 13:32 | DX: N93.9 Abnormal uterine and vaginal bleeding, unspecified (principal) | CPT/HCPCS: 88305 ==

== ENCOUNTER 2024-03-16 08:20 | Day surgery (SDC) | payer OTHER ==
[2024-03-16] VITALS (15 sets, daily range): BP systolic 104–125; BP diastolic 59–93
[~2024-03-16] VITALS: Ht 177.8 cm; Wt 76.5 kg
[~2024-03-16 08:20] MED LIST changes: +ACYC400 PO; -ACYC800 PO; +BUPR75 PO; +Bupivacaine 0.5% HCl 5 MG/ML 30MLVIAL ONE; +CLON1 PO; +Cyclobenzaprine5 MG PO; +MEDR10 PO; +OXYC5 PO; +TOPI100 PO; +ZUBSOLV SL
[2024-03-16] MEDS ORDERED: Clindamycin 900mg in D5W 50ML 50 ML IV SCH (08:40)
[2024-03-16] MEDS ORDERED: Lactated Ringer's 1,000 ML IV SCH ×2 (08:40→11:50)
[2024-03-16] MEDS ORDERED: Gentamicin Sulfate 100 MG in NS 100 ML IV SCH (08:42)
[2024-03-16] MEDS ORDERED: propofoL 20 ML IV ONE (09:23)
[2024-03-16] MEDS ORDERED: FentaNYL Citrate 50 MCG/ML 2 ML Injection ONE ×4 (09:24→11:59)
[2024-03-16] MEDS ORDERED: Lidocaine HCl 2% 20 ML MDV ONE (09:24)
[2024-03-16] MEDS ORDERED: Rocuronium Bromide 10 MG/ML 5ML Injection IV ONE (09:24)
--- NOTE | 2024-03-16 09:28 | NUR ---
History, Chart, Medications and Allergies reviewed before start of procedure. Lungs clear T/O to Auscultation. Patient reports completing Chlorhexadine shower X2 prior to admission to hospital. Pre-Op teaching done. Pt verbalizes understanding. Patient States Post-Procedure ride home has been arranged.
[2024-03-16] MEDS ORDERED: Ipratropium/Albuterol SulF 2.5-0.5MG/3 ML Amp INH ONE (09:35)
[2024-03-16] MEDS ORDERED: AMPDEX10CR PO (09:37)
[2024-03-16] MEDS ORDERED: OMEP20ER PO (09:38)
[2024-03-16] MEDS ORDERED: TOPI100 PO (09:38)
[2024-03-16] MEDS ORDERED: ZUBSOLV SL (09:38)
[2024-03-16] MEDS ORDERED: Dexamethasone Sod Phos 10 MG/ML 1ML VIAL ONE (10:11)
[2024-03-16] MEDS ORDERED: Ondansetron HCl 2 MG / ML 2ML Vial ONE (11:12)
[2024-03-16] MEDS ORDERED: Sugammadex Sodium 200 MG/2ML SDV (100 MG/ML) ONE (11:12)
[2024-03-16] MEDS ORDERED: DiphenhydrAMINE HCL 25 MG Cap PO PRN (11:45)
[2024-03-16] MEDS ORDERED: HYDROmorphone HCl/Pf 1MG SYR IV PRN (11:45)
[2024-03-16] MEDS ORDERED: FLU VACC TS2024-25(6MOS UP)/PF 45 MCG/0.5 ML SYRINGE IM SCH (11:45)
[2024-03-16] MEDS ORDERED: Metoclopramide HCl 5MG / ML 2ML Vial IV PRN (11:45)
[2024-03-16] MEDS ORDERED: Simethicone 80 MG Chew PO PRN (11:50)
[2024-03-16] MEDS ORDERED: Ondansetron 4 MG TAB PO PRN (11:50)
[2024-03-16] MEDS ORDERED: Ondansetron HCl 2 MG / ML 2ML Vial IV PRN (11:50)
[2024-03-16] MEDS ORDERED: Metoclopramide HCl 10 MG Tab PO PRN (11:50)
[2024-03-16] MEDS ORDERED: OxyCODONE HCL 5 MG TAB PO PRN ×2 (11:50→15:10)
[2024-03-16] MEDS ORDERED: Naloxone HCl 0.4MG / ML 1ML Vial IV PRN (11:50)
[2024-03-16] MEDS ORDERED: Ketorolac Tromethamine 30mg Vial ONE (11:51)
[2024-03-16] MEDS ORDERED: HYDROmorphone HCl/Pf 1MG SYR ONE (11:58)
[2024-03-16] MEDS ORDERED: Ketorolac Tromethamine 30mg Vial IV SCH (12:00)
[2024-03-16] MEDS ORDERED: Acetaminophen 500 MG Tab PO SCH (12:00)
--- NOTE | 2024-03-16 13:01 | NUR ---
P/O ARRIVED TO ROOM 210 VIA GURNEY FROM PACU S/P ROBOTIC TOTAL HYSTERECTOMY. AWAKE ALERT, PAIN 5/10, MIN VAG BLEEDING NOTED, DENIES NAUSEA. VSS AFEBRILE. SIPPING ON WATER AND EATING JELLO/SALTINE CRACKERS. ADMINISTERED OXYCODE AND TYLENOL FOR PAIN.
[2024-03-16] MEDS ORDERED: ACET500 PO (14:39)
[2024-03-16] MEDS ORDERED: OXYC5 PO (14:40)
[2024-03-16] MEDS ORDERED: SIME80CH PO (14:41)
--- NOTE | 2024-03-16 15:13 | NUR ---
PT REPORTS PAIN IS WAS TEMPORARILY IMPROVED AFTER TAKING OXYCODONE AND DILAUDID BUT INCREASED BACK TO 6/10. PT APPEARS PAINFUL, SHE IS GRIMACING WELL COMPLAINING OF PAIN. DR. MARILYN ALARCON NOTIFIED, ORDERES PLACED.
[2024-03-16] MEDS ORDERED: Artificial Tears Opth Oint 7 GM BOTHEYES PRN (15:15)
--- NOTE | 2024-03-16 15:15 | NUR ---
PT COMPLAINING OF L EYE DISCOMFORT. NO REDNESS OR SWELLING NOTED. ARTIFICIAL TEARS ORDERED BY DR. ALARCON.
[2024-03-16] MEDS ORDERED: Peg 400/Hypromellose/Glycerin 15 DROP/ML BTL BOTHEYES PRN (15:40)
--- NOTE | 2024-03-16 16:43 | NUR ---
PT'S L EYE IS NOW RED. PT IS RUBBING HER EYES, SHE WAS EDUCATED TO AVOID RUBBING IT. NO SCRATCHES VISIBLE, NO FOREIGN OBJECTED FOUND IN EYE. EYE DROPS PROVIDED, PT REPORTED TO RELIEF.
--- NOTE | 2024-03-16 17:53 | NUR ---
SHIFT SUMMARY PT IS POD#0. PT HAS REPORTED PAIN AT 5-6/10 SHE STATES PAIN IS NOT TOLERABLE. PT GRIMACES BUT IS ABLE TO DISTRACT FROM PAIN WITH CONVERSATION. DR. ALARCON WAS NOTIFIED OF PAIN MANAGEMENT CONCERNS, SHE INCREASED PAIN MEDICATION BUT PT REPORTS PAIN MANAGEMENT WAS NOT IMPROVED AFTER INCREASE. PT REPORTED IRRITATION TO HER L EYE, INITALLY NO OUTWARD SYMPTOMS OF IRRITIATION, L EYE IS NOW RED, EYE DROPS PROVIDED, DR. ALARCON NOTIFIED, PT ENCOURAGED NOT TO RUB EYE. PT HAS BEEN ABLE TO AMBULATE AND VOID POST-OP. PT IS INDEPENDENT IN THE ROOM. SHE USES THE CALL LIGHT APPROPRIATELY. VSS.
--- NOTE | 2024-03-16 19:05 | NUR ---
INCREASED PAIN PT REPORTED SUDDEN INCREASE IN PAIN AT 1830. PT STATES SHE HAD JUST BEEN UP TO VOID WHEN PAIN INCREASED. ABD REMAINS SOFT. NO INCREASE IN BLEEDING. IV DILAUDID GIVEN. HEATING PAD AND ABD BINDER IN PLACE FOR COMFORT. PT APPEARS ABLE TO DISTRACT FROM PAIN WITH CONVERSATION. PT IS RESTING IN BED AT THIS TIME.
[2024-03-16] MEDS ORDERED: Topiramate 100 MG Tab PO SCH (21:00)
[2024-03-16] MEDS ORDERED: BuPROPion HCl 75 MG Tab PO SCH (21:00)
[2024-03-16] MEDS ORDERED: ClonazePAM 1 MG Tab PO SCH (21:00)
[2024-03-17 00:01] VITALS: BP 105/63
[2024-03-17 03:28] VITALS: BP 105/71
[2024-03-17] MEDS ORDERED: Omeprazole 20 MG CapCR PO SCH (06:00)
[2024-03-17 07:11] VITALS: BP 107/70
--- NOTE | 2024-03-17 08:47 | NUR ---
SUMMARY PT TOLERATING PO,VOIDING,PAIN CONTROL SATISF,LAP SITES INTACT,LIGHT VAG FLOW,AMBULATORY
[2024-03-17] MEDS ORDERED: Amphet Asp/Amphet/D-Amphet 5 MG Tab PO SCH (09:00)
[2024-03-17] MEDS ORDERED: DULoxetine HCL 30 MG Cap DR PO SCH (09:00)
[2024-03-17] MEDS ORDERED: Buprenorphine HCL/Naloxone HCL 8MG-2MG Tab SL SCH (09:00)
[2024-03-17] MEDS ORDERED: LamoTRIgine 100 MG Tab PO SCH (09:00)
--- NOTE | 2024-03-17 11:15 | NUR ---
DISCHARGE PT PROVIDED WITH WRITTEN AND VERBAL DISCHARGE INSTRUCTION AT APPROXIMATELY 0944, SHE REPORTED UNDERSTANDING. PT STATES HER MEDICATION PRESCRIPTIONS HAVE ALREADY BEEN FILLED. PT WANTED TO WASH HER HAIR PRIOR TO DISCHARGE. PT ASSISTED OUT AT APPROXIMATELY 1050 IN W/C.
== END 2024-03-17 10:52 | disposition home or self-care (01) ==
LOC: ORSCMMR 08:20 → ORD 09:45 → ORSCMMR 09:45 → SURS 12:35 → ORSCMMR 03-17 10:52
PROVIDERS: Obstetrics & Gynecology
PROC: 0UT1FZZ Resection of Left Ovary, Via Natural or Artificial Opening With Percutaneous Endoscopic Assistance (ICD-10-PCS; principal; 2024-03-16 09:45)
PROC: 0UT7FZZ Resection of Bilateral Fallopian Tubes, Via Natural or Artificial Opening With Percutaneous Endoscopic Assistance (ICD-10-PCS; principal; 2024-03-16 09:45)
PROC: 0UT9FZZ Resection of Uterus, Via Natural or Artificial Opening With Percutaneous Endoscopic Assistance (ICD-10-PCS; principal; 2024-03-16 09:45)
DX: N93.9 Abnormal uterine and vaginal bleeding, unspecified (principal); N94.6 Dysmenorrhea, unspecified; N83.02 Follicular cyst of left ovary; J45.909 Unspecified asthma, uncomplicated; F90.9 Attention-deficit hyperactivity disorder, unspecified type; Z79.899 Other long term (current) drug therapy
CPT/HCPCS: 86850; 86900; 86901; 88307; 94762; A9270; J1100; J1170; J1580; J1885; J2405; J2704; J3010; J7120

== ENCOUNTER 2024-10-07 09:18 | Day surgery (SDC) | payer OTHER ==
[~2024-10-07] VITALS: Ht 177.8 cm; Wt 72.0 kg
[~2024-10-07 09:18] MED LIST changes: +ACET500 PO; +AMPDEX10CR PO; -Bupivacaine 0.5% HCl 5 MG/ML 30MLVIAL ONE; +Lactated Ringer's 1,000 ML IV ONE; +Lidocaine 1%-Epineph 1:200000 30 ML SDV ONE; +OMEP20ER PO; +SIME80CH PO
[2024-10-07] MEDS ORDERED: BUPR150ER PO (09:42)
[2024-10-07] MEDS ORDERED: Midazolam HCl 1MG / ML 2ML Vial ONE (09:58)
[2024-10-07] MEDS ORDERED: Lactated Ringer's 1,000 ML IV ONE (10:09)
[2024-10-07] MEDS ORDERED: FentaNYL Citrate 50 MCG/ML 2 ML Injection ONE ×2 (10:11→10:44)
[2024-10-07] MEDS ORDERED: propofoL 20 ML IV ONE (10:11)
[2024-10-07] MEDS ORDERED: Sugammadex Sodium 200 MG/2ML SDV (100 MG/ML) ONE (10:11)
[2024-10-07] MEDS ORDERED: Bupivacaine 0.25% Epi 1:200000 30 ML Vial ONE (10:16)
[2024-10-07] MEDS ORDERED: propofoL 60 ML IV ONE (10:34)
[2024-10-07] MEDS ORDERED: Ondansetron HCl 2 MG / ML 2ML Vial ONE (11:30)
[2024-10-07] MEDS ORDERED: Ketorolac Tromethamine 30mg Vial ONE (11:30)
[2024-10-07] MEDS ORDERED: Dexamethasone Sod Phos 10 MG/ML 1ML VIAL ONE (11:30)
[2024-10-07 12:12] VITALS: BP 122/76
--- NOTE | 2024-10-07 12:22 | NUR ---
10/07/24 1222 HELLEN ZIEGLER MOM IN AT BEDSIDE. PT IN RECLINER, DRINKING WO DIFF.
== END 2024-10-07 13:27 | disposition home or self-care (01) ==
LOC: ORSCSDS 09:18
PROVIDERS: Otolaryngology
PROC: 0GTK0ZZ Resection of Thyroid Gland, Open Approach (ICD-10-PCS; principal; 2024-10-07 10:45)
DX: E04.1 Nontoxic single thyroid nodule (principal); J45.909 Unspecified asthma, uncomplicated; F31.9 Bipolar disorder, unspecified; Z79.899 Other long term (current) drug therapy
CPT/HCPCS: 88307; J1100; J1885; J2250; J2405; J2704; J3010; J7120

== ENCOUNTER → 2024-11-26 | Outpatient (CLI) | payer OTHER ==
[~2024-11-26] MED LIST changes: +BUPR150ER PO; -Lactated Ringer's 1,000 ML IV ONE; -Lidocaine 1%-Epineph 1:200000 30 ML SDV ONE
[2024-11-26 16:01] LABS: BASOPHILS ABSOLUTE AUTO 0.02 K/mm3 (0.00-0.23); BASOPHILS PERCENT AUTO 1 % (0-2); EOSINOPHILS ABSOLUTE AUTO 0.07 K/mm3 (0.00-0.68); EOSINOPHILS PERCENT AUTO 2 % (0-6); Hematocrit 37.3 % (33.0-51.0); Hemoglobin 12.4 g/dL (11.5-16.0); IMMATURE GRAN PERCENT AUTO 0 % (0-1); LYMPHOCYTES ABSOLUTE AUTO 1.51 K/mm3 (0.84-5.20); LYMPHOCYTES PERCENT AUTO 44 % (21-46); MONOCYTES ABSOLUTE AUTO 0.26 K/mm3 (0.16-1.47); MONOCYTES PERCENT AUTO 8 % (4-13); Mean Corpuscular HGB 31.6 pg (26.0-34.0); Mean Corpuscular HGB Conc 33.2 g/dL (31.5-36.5); Mean Corpuscular Volume 95 fL (80-100); Mean Platelet Volume 11.7 fL (9.1-12.4); NEUTROPHILS ABSOLUTE AUTO 1.54 K/mm3 (1.96-9.15); NEUTROPHILS PERCENT AUTO 45 % (41-73); Platelet Count 242 K/mm3 (150-400); RDW Coefficient Variation 13.8 % (11.7-14.2); RDW Standard Deviation 48.3 fL (35.1-46.3); Red Blood Cell Count 3.92 M/mm3 (3.80-5.20)
[2024-11-26 16:24] LABS: CHOL/HDL RATIO 1.8; Cholesterol 152 mg/dL (50-200); HDL Cholesterol 86 mg/dL (>39); LDL/HDL RATIO 0.6; Low Density Lipoprotein Chol 54 mg/dL (0-110); Triglycerides 62 mg/dL (30-160); Very Low Density Lipoprot Chol 12 mg/dL (6-32)
== END ==
LOC: LAB 14:52 → LAB SHORT 14:52
PROVIDERS: Student in an Organized Health Care Education/Training Program
DX: E03.9 Hypothyroidism, unspecified (principal); G43.909 Migraine, unspecified, not intractable, without status migrainosus
CPT/HCPCS: 80061; 83036; 84443; 85025

== ENCOUNTER → 2025-01-08 | Outpatient (CLI) | payer OTHER | LOC: LAB 16:12 → LAB SHORT 16:12 | DX: J03.90 Acute tonsillitis, unspecified (principal) | CPT/HCPCS: 87081 ==

== ENCOUNTER → 2025-01-21 | Outpatient (CLI) | payer OTHER ==
[~2025-01-21] MED LIST changes: +IVERMECTIN3 MG PO
[2025-01-27 22:51] LABS: OVA AND PARASITE,FECAL INTERP Negative (Negative)
== END | disposition home or self-care (01) ==
LOC: LAB SHORT 13:43 → LAB 13:43
PROVIDERS: Student in an Organized Health Care Education/Training Program
DX: Z11.8 Encounter for screening for other infectious and parasitic diseases (principal)
CPT/HCPCS: 87177; 87209

== ENCOUNTER 2025-01-27 10:51 | Emergency (ER) | payer OTHER ==
[~2025-01-27] VITALS: Ht 177.8 cm; Wt 71.2 kg
[~2025-01-27 10:51] MED LIST changes: -IVERMECTIN3 MG PO
[2025-01-27 11:10] VITALS: BP 128/97
[2025-01-27] MEDS ORDERED: IVERMECTIN3 MG PO (11:18)
== END 2025-01-27 11:20 | disposition home or self-care (01) ==
LOC: ER 10:51
DX: B82.0 Intestinal helminthiasis, unspecified (principal); Z88.8 Allergy status to other drugs, medicaments and biological substances; Z88.5 Allergy status to narcotic agent; Z79.899 Other long term (current) drug therapy; Z90.49 Acquired absence of other specified parts of digestive tract; Z87.891 Personal history of nicotine dependence
CPT/HCPCS: 99282

== ENCOUNTER → 2025-02-05 | Outpatient (CLI) | payer OTHER ==
[~2025-02-05] MED LIST changes: +IVERMECTIN3 MG PO
[2025-02-12 08:32] LABS: OVA AND PARASITE,FECAL INTERP Negative (Negative)
== END ==
LOC: LAB 10:10 → LAB SHORT 10:10
PROVIDERS: Student in an Organized Health Care Education/Training Program
DX: R19.5 Other fecal abnormalities (principal)
CPT/HCPCS: 87177; 87209

== ENCOUNTER → 2025-02-06 | Outpatient (CLI) | payer OTHER ==
[2025-02-12 08:29] LABS: OVA AND PARASITE,FECAL INTERP Negative (Negative)
== END | disposition home or self-care (01) ==
LOC: LAB 20:00 → LAB SHORT 20:00
PROVIDERS: Student in an Organized Health Care Education/Training Program
DX: R19.5 Other fecal abnormalities (principal)
CPT/HCPCS: 87177; 87209

== ENCOUNTER → 2025-02-07 | Outpatient (CLI) | payer OTHER ==
[2025-02-12 08:32] LABS: OVA AND PARASITE,FECAL INTERP Negative (Negative)
== END | disposition home or self-care (01) ==
LOC: LAB SHORT 09:30 → LAB 09:30
PROVIDERS: Student in an Organized Health Care Education/Training Program
DX: R19.5 Other fecal abnormalities (principal)
CPT/HCPCS: 87177; 87209

== ENCOUNTER 2025-02-22 11:57 | Emergency (ER) | payer OTHER ==
[~2025-02-22] VITALS: Ht 177.8 cm; Wt 72.1 kg
[2025-02-22 12:41] VITALS: BP 127/84
[2025-02-22] MEDS ORDERED: EMVERM100 MG PO (14:22)
[2025-02-22] MEDS ORDERED: ONDA4ODT MM (14:25)
== END 2025-02-22 14:41 | disposition home or self-care (01) ==
LOC: ER 11:57
DX: R19.5 Other fecal abnormalities (principal); F32.A Depression, unspecified; M54.9 Dorsalgia, unspecified; G89.29 Other chronic pain; Z88.5 Allergy status to narcotic agent; Z88.1 Allergy status to other antibiotic agents; Z79.899 Other long term (current) drug therapy
CPT/HCPCS: 99283

== ENCOUNTER → 2025-02-23 | Outpatient (CLI) | payer OTHER ==
[~2025-02-23] MED LIST changes: +EMVERM100 MG PO; +ONDA4ODT MM
[2025-02-23 17:56] LABS: Campylobacter Sp Not Detected (NOT DETECT); E. Coli O157 Not Detected (NOT DETECT); Enteroaggregative E. coli-EAEC Not Detected (NOT DETECT); Enteropathogenic E. coli-EPEC Not Detected (NOT DETECT); Enterotoxigenic E. coli-ETEC Not Detected (NOT DETECT); Salmonella Sp Not Detected (NOT DETECT); Shiga Toxin-prod E. coli-STEC Not Detected (NOT DETECT); Shigella/Enteroin E. coli-EIEC Not Detected (NOT DETECT); Vibrio Sp Not Detected (NOT DETECT)
== END ==
LOC: LAB 14:30 → LAB SHORT 14:30
PROVIDERS: Student in an Organized Health Care Education/Training Program
DX: R19.7 Diarrhea, unspecified (principal)
CPT/HCPCS: 87507

== ENCOUNTER → 2025-02-26 | Outpatient (CLI) | payer OTHER ==
[2025-03-04 14:27] LABS: OVA AND PARASITE,FECAL INTERP Negative (Negative)
== END | disposition home or self-care (01) ==
LOC: LAB 09:30 → LAB SHORT 09:30
PROVIDERS: Physician Assistant
DX: R19.5 Other fecal abnormalities (principal)
CPT/HCPCS: 87177; 87209

== ENCOUNTER → 2025-03-11 | Outpatient (CLI) | payer OTHER ==
[2025-03-17 21:44] LABS: OVA AND PARASITE,FECAL INTERP Negative (Negative)
== END | disposition home or self-care (01) ==
LOC: LAB SHORT 08:30 → LAB 08:30
PROVIDERS: Physician Assistant
DX: R19.5 Other fecal abnormalities (principal)
CPT/HCPCS: 87177; 87209

== ENCOUNTER 2025-06-22 06:57 | Day surgery (SDC) | payer OTHER ==
[~2025-06-22] VITALS: Ht 177.8 cm; Wt 72.5 kg
[2025-06-22] VITALS (10 sets, daily range): BP systolic 106–116; BP diastolic 17–96
[~2025-06-22 06:57] MED LIST changes: +ASCO500 PO; +BISA5EC PO; +BUME2 PO; -CLON1 PO; +FERSU300 PO; +GABA600 PO; +K-Dur20 MEQ; +LEVSOD137 PO; +LEVSOD150 PO; +MONT5TCH PO; +Ondansetron Odt8 MG MM; +RIZATRIPTAN10 MG SL
[2025-06-22] MEDS ORDERED: FLUT1DIS8 INH (07:48)
--- NOTE | 2025-06-22 07:56 | NUR ---
Pre-Op teaching done. Pt verbalizes understanding. Ambulatory in Day Surgery. Patient confirms NPO status and agrees with scheduled surgery. Patient States Post-Procedure ride home has been arranged. History, Chart, Medications and Allergies reviewed before start of procedure.
[2025-06-22] MEDS ORDERED: FentaNYL Citrate 50 MCG/ML 2 ML Injection ONE ×2 (09:27→10:32)
[2025-06-22] MEDS ORDERED: Ondansetron HCl 2 MG / ML 2ML Vial ONE (09:38)
[2025-06-22] MEDS ORDERED: Dexamethasone Sod Phos 10 MG/ML 1ML VIAL ONE (09:38)
[2025-06-22] MEDS ORDERED: FentaNYL Citrate 50 MCG/ML 2 ML Injection IV PRN ×2 (09:45)
[2025-06-22] MEDS ORDERED: Albuterol 2.5 MG/3 ML VIAL INH PRN (09:45)
[2025-06-22] MEDS ORDERED: Metoclopramide HCl 5MG / ML 2ML Vial IV PRN (09:45)
[2025-06-22] MEDS ORDERED: HYDROmorphone HCl/Pf 1MG SYR IV PRN ×2 (09:45)
[2025-06-22] MEDS ORDERED: Bupivacaine 0.25% Epi 1:200000 30 ML Vial ONE (09:55)
[2025-06-22] MEDS ORDERED: Ketorolac Tromethamine 30mg Vial ONE (10:05)
[2025-06-22] MEDS ORDERED: OxyCODONE 5 mg/Acetamin 325 mg TABLET PO PRN (10:20)
--- NOTE | 2025-06-22 11:11 | NUR ---
Report received from Yenny MONTERO. VSS. Pt on RA. A&OX4. Pt sitting up in bed, stephen PO food and fluids. Pt family at bedside. Pt has no drsg to surg site. Discharge instructions reviewed with patient and her family. Patient verbalizes understanding. Copy given to patient to take home.
--- NOTE | 2025-06-22 11:35 | NUR ---
Patient up to Ambulate independently. Gait steady. VSS and consistent with pt baseline. Pt has no complaints and verbalizes readiness to go home. Pt has no drsg. No drainage/blood noted on bed. Patient States Post-Procedure ride home has been arranged. Discharged via wheelchair to private car for ride home. Pt belongings returned to pt.
== END 2025-06-22 11:38 | disposition home or self-care (01) ==
LOC: ORSCMMR 06:57 → ORD 08:30 → ORSCMMR 08:30 → ORD 09:00 → ORSCMMR 11:38
PROVIDERS: Surgery
PROC: 06BY0ZC Excision of Hemorrhoidal Plexus, Open Approach (ICD-10-PCS; principal; 2025-06-22 08:30)
PROC: 0DBQ7ZX Excision of Anus, Via Natural or Artificial Opening, Diagnostic (ICD-10-PCS; principal; 2025-06-22 08:30)
DX: K62.89 Other specified diseases of anus and rectum (principal); K64.4 Residual hemorrhoidal skin tags; J45.909 Unspecified asthma, uncomplicated; F90.9 Attention-deficit hyperactivity disorder, unspecified type; F31.9 Bipolar disorder, unspecified; Z79.899 Other long term (current) drug therapy; Z87.891 Personal history of nicotine dependence
CPT/HCPCS: 88305; A9270; J1100; J1885; J2405; J2704; J3010; J7120